=== PATIENT | female | born 1965 | race Caucasian/White ===

== ENCOUNTER 2025-05-16 12:26 | Emergency (ER) | payer OTHER, SELFPAY ==
--- NOTE | ~2025-05-16 | XR_ITS ---
EXAMINATION: XR wrist RT min 3V DATE: 05/16/2025 13:09 INDICATION: Pain for 2 weeks. No injury TECHNIQUE:4 images of the right wrist were obtained. COMPARISON: none FINDINGS: Moderate joint space narrowing in the first carpometacarpal joint and first metacarpophalangeal joint. Soft tissue swelling about the right wrist. Vascular calcifications are noted. Bone mineralization is within normal limits. No fracture. No dislocation. IMPRESSION: 1. No fracture. No dislocation 2. Moderate joint space narrowing in the first carpometacarpal joint and first metacarpophalangeal joint. 3. Soft tissue swelling about the right wrist. If symptoms persist or worsen, consider a short-term follow-up study or additional imaging for further assessment. Reviewed, dictated and finalized at location Q. IMPRESSION: 1. No fracture. No dislocation 2. Moderate joint space narrowing in the first carpometacarpal joint and first metacarpophalangeal joint. 3. Soft tissue swelling about the right wrist. If symptoms persist or worsen, consider a short-term follow-up study or additio nal imaging for further assessment.
[2025-05-16 12:38] VITALS: BP 129/70; PULSE 85; RESP 18; TEMP 36.2; O2SAT 96
--- OUTSIDE RECORDS SUMMARY | 2025-05-16 12:40 | XMS_ITS | Encounter Summary ---
Author Organization [facility] Health Address [address] [place] [address] Care Team Providers Care Cloth Spreader Name Role Phone Nolan Villa MD Primary Care Provider [phone] Cali Garcia MD Unavailable [facility] services Ravinder Alejandro MD Unavailable [phone] Sulaiman Elliott MD Unavailable Gabriel Coffman MD Unavailable [phone] Gill Lopez MD Primary Care Provider [phone] Gill Lopez MD Unavailable [phone] Encounter Details Date Type Department Care Team (Late st Contact Info) Description 12/07/2012 [facility] Outpatient Visit [facility] [address] [place], [place] [id number] Nolan Villa MD [address] [place] [address] Social History Tobacco Use Types Packs/Day Years Used Date Smoking Tobacco: Never Smokeless Tobacco: Never Alcohol Use Standard Drinks/Week Comments No 0 (1 standard drink = 0.6 oz pur e alcohol) Comments No Sex and Gender Information Value Date Recorded Sex Assigned at Not on file Legal Sex 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 Gender Identity Not on file Sexual Orientation Not on file 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 Not on file documented as of this encounter Plan of Treatment Upcoming Encounters Date Type Department Care Team (Late st Contact Info) Description 11/29/2025 8:15 AM CDT Office Visit [facility] - Internal Medicine [address] [facility] [place], [place] [phone] Gill Lopez MD [address] [place] [address] 04/13/2026 8:45 AM CDT Office Visit [facility] [address] [place] [address] [address] [place] [address] Gabriel Coffman MD [address] [place] [address] [address] [place] [address] documented as of this encounter Visit Diagnoses Not on filedocumented in this encounter Care Teams Cloth Spreader Relationship Specialty Start Date End Date Nolan Villa MD PCP - General 10/17/08 11/15/20 Gill Lopez MD [address] [place] [address] PCP - General Family Medicine 11/16/20 Gill Lopez MD [address] [place] [phone] PCP - Attributed-[employer] 11/22/21 Cali Garcia MD 04/04/10 Ravinder Mora MD [facility] [address] [place] [phone] 04/04/10 Sulaiman Elliott MD [facility] [address] [place] [phone] Orthopedic Surgery 06/21/15 Gabriel Coffman MD [facility] [address] [place] [address] Cardiology 08/19/16 documented as of this encounter
--- OUTSIDE RECORDS SUMMARY | 2025-05-16 12:40 | XMS_ITS | Clinical Summary ---
Author Organization [facility] Address [address] [place] [address] Care Team Providers Care Keeper Helper Name Role Phone Cali Garcia MD Unavailable UnavailRavinder Fenton MD Unavailable [phone] Sulaiman Elliott MD Unavailable Gabriel Coffman MD Unavailable [phone] Gill Lopez MD Primary Care Provider Source Comments [facility],non-owned Affiliates and Associated Physician Practices is amultiple site organization consisting of ambulatory clinics and hospital sitesin [place], [place], [place] and [place]. This disclosure is being madepursuant to the Care Everywhere program and may not contain all information available regarding this patient. Last updated 18.[facility] Allergies Active Allergy Reactions Criticality Noted Date Comments Adhesive Sensitivity Other 04/08/2021 Reaction: SKIN IRRITATION, Apixaban Urticaria High 06/04/2021 Azithromycin Diarrhea Low 10/16/2014 Diclofenac Sodium Diarrhea Medium 08/03/2018 Penicillins Rash Medium 10/17/2008 Prochlorperazine Rash Medium 01/07/2021 Silicon Rash,Other Medium 04/08/2021 Che skin Medications * Be aware that medications may not be up to date on this document. Alwaysverify current medications with the patient. fexofenadine (Tanisha) 180 MG tablet Take 1 (one) tablet by mouth once daily Active metoprolol succinate XL 24hr (Toprol XL) 50 MG tablet Take 1 (one) tablet by mouth once daily 90 tablet 4 04/07/2024 Active vitamin D (Cholecaciferol ) 125 MCG (5000 UT) capsule Take 1 (one) capsule by mouth once daily Active rosuvastatin (Crestor) 20 MG tablet Take 1 tablet by mouth once daily 90 tablet 3 02/14/2025 Active sertraline (Zoloft) 100 MG tablet Take 1 tablet by mouth once daily 100 tablet 02/23/2025 Active Active Problems Problem Noted Date Diagnosed Date Hypertensive heart disease with heart failure PSVT (paroxysmal supraventricular tachycardia) 1 Status post total right knee replacement 022 07/22/2023 Status post total replacement of left hip 202007/22/2023 Primary osteoarthritis of left hip 02/18/2021 07/22/2023 Overview (07/22/2023): Added automatically from request for surgery [id number] Knee pain 01/01/2021 07/22/2023 Seborrheic keratosis 04/07/2018 Overview (04/07/2018): Lateral right breast Moderate episode of recurrent major depressive d isorder 12/09/2016 Hematuria 08/01/2016 Overview (08/01/2016): Neg urological workup, October,, Dr. Td Villa Osteoarthritis of both knees 07/25/2016 Pain of both shoulder joints 07/25/2016 Diffuse cystic mastopathy of breast 03/24/2016 Hyperlipidemia 03/21/2016 Right knee DJD 08/02/2013 Family history of breast cancer 07/13/2012 Other specified pruritic conditions 07/02/2009 Obesity 10/17/2008 Depression 10/17/2008 Palpitations 10/17/2008 Overview (10/16/2015): Note that about 16 years ago, had a cardiac cath. Appeared to have some degree of small vessel spasming with her PSVT, relieved for years with long acting nitrates. 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 10/17/2008 09/08/2011 Encounters Date Type Department Care Team Description 04/18/2025 Results Follow-Up [facility] [address] [place] [address] Gill Lopez MD Returned Call 04/13/2025 9:00 AM CDT Office Visit [facility] Heart [facility] Vascular [address] [place] [address] Gabriel Coffman MD PSVT (paroxysmal supraventricular tachycardia) (HCC) (Primary Dx) 04/13/2025 Results Follow-Up [facility] Internal Medicine [address] [place] [address] Gill Lopez MD 04/13/2025 Results Follow-Up [facility] Vascular [address] [place] [address] Gabriel Coffman MD 02/23/2025 Refill [facility] Internal Medicine [address] [place] [address] Gill Lopez MD Refill Request from Last 3 Months Immunizations Immunization Administration Dates Next Due Covid Bluechilli primary monoval ent 12+ yr 0.3mL Purple cap 07/15/2021,09/28/2020,09/07/2020 FLU VACCINE TRI IIV3 SPLIT I M (FLUVIRIN) 06/12/2012 INFLUENZA VACCINE 06/24/2015, 2,04/24/2011,2009,05/21/2009 INFLUENZA VACCINE, CELL CULT URE, QUADR. (FLUCELVAX QUADRIVALENT; 6MO+) (CCIIV4) 06/21/2020 INFLUENZA VACCINE, QUADR. (F LUZONE; FLULAVAL; FLUARIX; AFLURIA QUADRIVALENT; 6MO+), 0.5 ML (IIV4) 07/22/2023,07/15/2021,07/23/2017,2015 INFLUENZA VACCINE, TRIV. (FL UZONE; FLULAVAL; FLUARIX; AFLURIA TRIVALENT; 6MO+), 0.5 ML (IIV3) 06/20/2024,06/20/2015 TD VACCINE 08/24/2004 TDAP (7yrs+) 10/16/2015 Zoster Hzv Vacc Recombinant Inj Im 07/14/2018,,04/08/2018 Family History Medical History Relation Name Comments CVA<55(male) Father Hypertension Father Cancer - Pancreatic Mother Breast Cancer after age 50 or unknown Sister 1 2015 Cancer Sister 3 at age 55 Relation Name Status Comments Brother (Age 18) MVA Father (Age 64) CVA Mother (Age 62) pancreatic cancer Sister 1 breast cancer, with mets Sister 2 Alive Sister 3 Social History Tobacco Use Types Packs/Day Years Used Date Smoking Tobacco: Never Passive Smoke Exposure: Never Smokeless Tobacco: Never Tobacco Cessation:Counseling Given: Not Answered Alcohol Use Standard Drinks/Week Comments Yes 1 (1 standard drink = 0.6 oz pur e alcohol) PHQ-2 Answer Date Recorded Patient Health Questionnaire-2 Score 0 11/25/2024 Comments No Sex and Gender Information Value Date Recorded Sex Assigned at Not on file 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 Gender Identity Not on file Sexual Orientation Not on file 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 Not on file Last Filed Vital Signs Vital Sign Reading Time Taken Comments Blood Pressure 130/98 04/13/2025 8:55 AM CDT Pulse 75 04/13/2025 8:55 AM CDT Temperature 36.4 C (97.6 F) 11/25/2024 1:18 PM CDT Respiratory Rate 18 07/21/2022 9:20 AM VE TEACHER Oxygen Saturation 95% 04/13/2025 8:55 AM CDT Inhaled Oxygen Concentration - - Weight 106.1 kg (233 lb 12.8 oz) 04/13/2025 8:55 AM CDT Height 157.5 cm (5' 2) 11/25/2024 1:18 PM CDT Body Mass Index 42.76 11/25/2024 1:18 PM CDT Plan of Treatment Upcoming Encounters Date Type Department Care Team (Late st Contact Info) Description 11/29/2025 8:15 AM CDT Office Visit [facility] - Internal Medicine [address] [facility] [place] [address] Gill Lopez MD [address] [facility] [place] [address] 04/13/2026 8:45 AM CDT Office Visit [facility] Care [address] [facility] [address] [place] [address] Gabriel Coffman MD [facility]7 [facility] [address] [place] [address] Health Maintenance Due Date Last Done Comments COLOGUARD (AGES 45-75) - COLON CA SCREENING 1965 CT COLONOGRAPHY - COLON CA SCREENING 1965 FIT - COLON CA SCREENING 1965 FLEX SIG - COLON CA SCREENING 1965 HIV SCREENING 1980 HEPATITIS C SCREENING 07/26/1983 HEPATITIS B VACCINE (1 of 3 - 19+ 3-dose series) 1984 PNEUMOCOCCAL VACCINE 50+ (1 of 1 - PCV) 2015 COVID-19 VACCINE (2024- season) 2025 07/15/2021, 09/28/2020, 09/07/2020 INFLUENZA VACCINE (#1) 2025 , 07/22/2023, 07/15/2021, Additional history exists DTAP/TDAP/TD VACCINES (3 - Td or Tdap) 10/16/2025 10/16/2015, 08/24/2004 MAMMOGRAM 04/14/2027 04/14/2025, 04/0 08/2023, 11/23/2023, Additional history exists COLON MONITORING 07/21/2027 07/21/2022, , 07/21/2022, Additional history exists Colorectal Cancer Screening 07/21/2027 SCREENING FOR DIABETES 04/13/2028 , 04/13/2025, 06/22/2024, Additional history exists COLONOSCOPY - COLON CA SCREENING 07/21/2032 07/21/2022, 07/21/2022, 07/21/2022, Additional history exists ZOSTER VACCINE Completed 07/14/2018, 04/24, 04/08/2018 DEPRESSION SCREENING Completed 11/25/2024, 02/02/2024, 07/22/2023, Additional history exists HIB VACCINE Aged Out No longer eligi ble based on patient's age to complete this topic HPV VACCINE Aged Out No longer eligi ble based on patient's age to complete this topic MENINGOCOCCAL (Group B) VACCINE SHARED DECISION-MAKING Aged Out No longer eligible based on patient's age to complete this topic MENINGOCOCCAL GROUPS A/C/Y/W VACCINE Aged Out No longer eligible based on patient's age to complete this topic Procedures Procedure Name Priority Date/Time Associated Diagnosis Comments MAMMOGRAM 04/14/2025 LIPID PROFILE Routine 04/13/2025 10:08 AM CDT PSVT (paroxysmal supraventricular tachycardia) (HCC) LIPOPROTEIN A Routine 04/13/2025 10:07 AM CDT PSVT (paroxysmal supraventricular tachycardia) (HCC) BASIC METABOLIC PANEL (CALCIUM TOTAL) Routine 04/13/2025 10:07 AM CDT IGT (impaired glucose tolerance) HEMOGLOBIN A1C Routine 04/13/2025 10:07 AM CDT IGT (impaired glucose tolerance) EKG 12-LEAD Routine 04/13/2025 9:11 AM CDT PSVT (paroxysmal supraventricular tachycardia) (HCC) ENDOSCOPY, COLON, SCREENING Routine 07/21/2022 9:26 AM VE TEACHER Hx of colonic polyps from Last 3 Months or Most Recently Relevant to Health Maintenance Results * MAMMOGRAM (04/14/2025) Anatomical Region Laterality Modality Other 04/14/2025 Narrative 04/14/2025 Ordered by an unspecified provider. us Scanned Document SCANNING ONLY Final Result * (ABNORMAL) LIPID PROFILE (04/13/2025 10:08 AM CDT) Cholesterol 162 <200 mg/dL [facility] INSURANCE BILL Triglycerides 158(H) <150 mg/dL [facility] INSURANCE BILL HDL Cholesterol 54 >40 mg/dL [facility] INSURANCE B[facility] VLDL Calculated 32(H) <=30 mg/dL [facility] INSURANCE BILL LDL Calculated 76 <130 mg/dL [facility]URANCE BILL Comment:LDL is calculated us ing the Friedewald equation. Blood BLOOD SPECIMEN / Unknown 04/13/2025 10:08 AM CDT 04/13/2025 Narrative [facility] INSURANCE BILL - 04/13/2025 5:10 PM CDT Performed at: [address] [place] [address] [place] [id number] Split And Drum Room Supervisor: Connor Romero Dr, Phone: [phone] Gabriel Coffman MD LAB - CHEMISTRY ORDERABLES Fi nal Result [facility] INSURANCE BILL [address] [place] [address] * LIPOPROTEIN A (04/13/2025 10:07 AM CDT) Lipoprotein (a) 73.9 <75.0 nmol/L [facility] INSURANCE BILL Comment: Note: Values greater than or equal to 75.0 nmol/L may indicate an independent risk factor for CHD, but must be evaluated with caution when applied to non- populations due to the influence of genetic factors on Lp(a) across ethnicities. Blood BLOOD SPECIMEN / Unknown 04/13/2025 10:07 AM CDT 04/13/2025 Narrative [facility] INSURANCE BILL - 04/14/2025 10:10 AM CDT Test(s) 263754-Uytvqfqkvza (a) was developed and its performance characteristics determined by [employer]. It has not been cleared or approved by the Food and Drug Administration. Performed at: [address] [place] [address] [address] [place], [place] [id number] Split And Drum Room Supervisor: Celestine Ponce PhD, Phone: [phone] us Gabriel Coffman MD LAB - CHEMISTRY ORDERABLES Fi nal Result [facility] INSURANCE BILL [address] [place] [address] * (ABNORMAL) HEMOGLOBIN A1C (04/13/2025 10:07 AM CDT) Hemoglobin A1c 6.1(H) <5.7 % [facility] INSURANCE BILL Comment: AVERAGE GLUCOSE MG/DL BLOOD 128 mg/dL HbA1c Interpretation: Normal: < 5.7% Pre-diabetes: 5.7-6.4% Diabetes: Equal to or greater than 6.5% Test results diagnostic of diabetes should be repeated for c onfirmation. Treatment target values recommended by ADA and other clinica l organizations should be used to evaluate metabolic control in patients. This test should not replace glucose testing for patients wi th Type 1 diabetes, pediatric patients, or women. Falsely low HbA1c results may be observed in patients with c linical conditions that shorten erythrocyte life span or dec rease mean erythrocyte age such as the presence of unstable hemoglobin variants, elevated hemoglobin F level or other ca uses of hemolytic anemia. HbA1c may not accurately reflect glycemic control when clinical conditions that affect erythr ocyte survival are present. Severe Iron deficiency anemia m ay yield falsely high results. Hemoglobin A1c assay should not be used to diagnose or monitor diabetes in patients with malignancy, recent blood transfusion, chronic kidney or stephane er disease. This method may yield falsely low results when hemoglobin (HbF) exceeds 5% in the specimen. The Ty Alinity assay for the measurement of HbA1c is a [facility] Glycohemoglobin Standardization Program (NGSP) certi fied method. Blood BLOOD SPECIMEN / Unknown 04/13/2025 10:07 AM CDT 04/13/2025 Narrative [facility] INSURANCE BILL - 04/13/2025 4:07 PM CDT Performed at: [address] [place] [id number] Split And Drum Room Supervisor: Connor Romero Dr, Phone: [phone] us Gill Lopez MD LAB - CHEMISTRY ORDERABLES Fin al Result [facility] INSURANCE BILL [address] [place] [address] * (ABNORMAL) BASIC METABOLIC PANEL (CALCIUM TOTAL) (04/13/2025 10:07 AM CDT) Glucose 96 70 - 99 mg/dL [facility] INSURANCE BILL BUN 9 7 - 26 mg/dL [facility] INSURANCE BILL Creatinine 0.67 0.57 - 1.11 mg/dL [facility] INSURANCE BILL eGFR by CKD-EPI >90 >=90 mL/min/1.7 3 m2 [facility] INSURANCE BILL Comment: Estimated Glomerular Filtration Rate (eGFR) calculated using the CKD-EPI Creatinine Equation (2020), per the National [place] [employer] Foundation and [place]ph[employer] recommend ations. Sodium 142 136 - 145 mmol/L [facility] INSURANCE BILL Potassium 5.0 3.5 - 5.1 mmol/L [facility] INSURANCE BILL Chloride 105 98 - 107 mmol/L [facility] INSURANCE BILL CO2 30(H) 22 - 29 mmol/L [facility] INSURANCE BILL Calcium 9.2 8.4 - 10.4 mg/dL [facility] INSURANCE BILL Blood BLOOD SPECIMEN / Unknown 04/13/2025 10:07 AM CDT 04/13/2025 Narrative [facility] INSURANCE BILL - 04/13/2025 8:07 PM CDT Performed at: [address] [place] [id number] Split And Drum Room Supervisor: Connor Romero Dr, Phone: [phone] Gill Lopez MD LAB - CHEMISTRY ORDERABLES Fin al Result [facility] INSURANCE BILL [address] [place] [address] * EKG 12-LEAD (04/13/2025 9:11 AM CDT) Ventricular Rate 68 BPM [facility] Atrial Rate 68 BPM [facility] P-R Interval 132 ms [facility] QRS Duration ms 86 ms [facility] Q-T Interval ms 394 ms [facility] QTC Calculation (Bezet) 418 ms [facility] Calculated P [place] 55 degrees [facility] Calculated R [place] 67 degrees [facility] Calculated T [place] 64 degrees [facility] MUSE Interpretation EKG NORMAL SINUS RHYTHM LEFT ATRIAL ENLARGEMENT BORDERLINE ECG Confirmed by MD Meghna, Gabriel ([id number]) on 04/14/2025 7:27:11 AM [facility] MUSE 04/13/2025 9:11 AM CDT 04/14/2025 7:27 AM CDT us Gabriel Coffman MD ECG ORDERABLES Edited Result - Final [facility] MUSE * ENDOSCOPY, COLON, SCREENING (07/21/2022 9:26 AM VE TEACHER) Report Endoscopy POC _ Patient Name: Karie Graves Procedure Date: 07/21/2022 9:26 AM Date of : 1965 Admit Type: Outpatient Age: 56 Gender: Female Ethnicity: Not or Race: White Attending MD: Katiana Miller MD _ Procedure: Colonoscopy Indications: Surveillance: Personal history of adenomatous polyps on last colonoscopy 5 years ago Providers: Katiana Miller MD (Doctor), Ag Rojas, VIRGINIE, Catarina Goodson RN Patient Profile: 56F presents for surveillance colonoscopy Referring MD: Gill Lopez MD (Referring MD) Medicines: Monitored Anesthesia Care Complications: No immediate complications. _ Estimated Blood Loss: Estimated blood loss was minimal. Procedure: Pre-Anesthesia Assessment: - Prior to the procedure, a History and Physical was performed, and patient medications and allergies were reviewed. The patient's tolerance of previous anesthesia was also reviewed. The risks and benefits of the procedure and the sedation options and risks were discussed with the patient. All questions were answered, and informed consent was obtained. Prior Anticoagulants: The patient has taken no previous anticoagulant or antiplatelet agents. ASA Grade Assessment: II - A patient with mild systemic disease. After reviewing the risks and benefits, the patient was deemed in satisfactory condition to undergo the procedure. After I obtained informed consent, the scope was passed under direct vision. Throughout the procedure, the patient's blood pressure, pulse, and oxygen saturations were monitored continuously. The Colonoscope was introduced through the anus and advanced to the cecum, identified by appendiceal orifice and ileocecal valve. The colonoscopy was performed without difficulty. The patient tolerated the procedure well. The quality of the bowel preparation was fair. The ileocecal valve, appendiceal orifice, and rectum were photographed. Impression: - One 4 mm polyp in the sigmoid colon, removed with a cold biopsy forceps. Resected and retrieved. - Two 11 to 14 mm polyps at the recto-sigmoid colon, removed with a hot snare. Resected and retrieved. Findings: The perianal and digital rectal examinations were normal. A 4 mm polyp was found in the sigmoid colon. The polyp was sessile. The polyp was removed with a cold biopsy forceps. Resection and retrieval were complete. Two semi-sessile polyps were found in the recto-sigmoid colon. The polyps were 11 to 14 mm in size. These polyps were removed with a hot snare. Resection and retrieval were complete. No additional abnormalities were found on retroflexion. _ Recommendation: - Patient has a contact number available for emergencies. The signs and symptoms of potential delayed complications were discussed with the patient. Return to normal activities tomorrow. Written discharge instructions were provided to the patient. - High fiber diet. - avoid asa/NSAIDs x 2 wks - Repeat colonoscopy in 3 years for surveillance based on pathology results. Procedure Code(s): --- Professional --- 50115, Colonoscopy, flexible; with removal of tumor(s), polyp(s), or other lesion(s) by snare technique 89744, 59, Colonoscopy, flexible; with biopsy, single or multiple --- Technical --- 95747, Colonoscopy, flexible; with removal of tumor(s), polyp(s), or other lesion(s) by snare technique 63437, 59, Colonoscopy, flexible; with biopsy, single or multiple Diagnosis Code(s): --- Professional --- K63.5, Polyp of colon Z86.010, Personal history of colonic polyps --- Technical --- K63.5, Polyp of colon Z86.010, Personal history of colonic polyps CPT copyright 2019 [employer]. All rights reserved. The codes documented in this report are preliminary and upon social work nurse review may be revised to meet current compliance requirements. Katiana Miller MD 07/21/2022 9:59:33 AM This report has been signed electronically. Number of Addenda: 0 Note Initiated On: 07/21/2022 9:26 AM [facility] ENDOSCOPY 07/21/2022 9:26 AM VE TEACHER Narrative Procedure Note Katiana Miller MD - 07/21/2022 10:00 AM CST Colonoscopy 3 polyps resected including 2 large polyps/adenomas Fair prep, R side worse Surveillance 3 yrs pending path Brief nsaid avoidance D/w Karie us Katiana Miller MD GI PROCEDURE ORDERABLES Edited R esult - Final [facility] ENDOSCOPY from Last 3 Months or Most Recently Relevant to Health Maintenance Insurance [facility] RE[facility]AC[facility] BY [facility] [employer] Advance Directives Documents on File Type Date Recorded Patient Social Services Designee Expl anation Adv Directive/Living Will/POA 11/16/2020 8:39 AM verbal Care Teams Keeper Helper Relationship Specialty Start Date End Date Gill Lopez MD [address] [facility] [address] PCP - General Family Medicine 11/16/20 Cali Garcia MD 04/04/10 Ravinder Mora MD [address] [place] [phone] 04/04/10 Sulaiman Elliott MD [address] [place] [address] Orthopedic Surgery 06/21/15 Gabriel Coffman MD [address] [facility] [address] [place] [address] Cardiology 08/19/16
--- OUTSIDE RECORDS SUMMARY | 2025-05-16 12:40 | XMS_ITS | Encounter Summary ---
Author Organization [facility] Address [address] [place] [address] Care Team Providers Care Car Pusher Name Role Phone Nolan Villa MD Primary Care Provider [phone] Cali Garcia MD Unavailable Unavaillegacy [facility] Ravinder Alejandro MD Unavailable [phone] Sulaiman Elliott MD Unavailable Gabriel Coffman MD Unavailable [phone] Gill Lopez MD Primary Care Provider [phone] Gill Lopez MD Unavailable [phone] Encounter Details Date Type Department Care Team (Late Contact Info) Description 12/13/2012 [facility] Outpatient Visit [facility] [address] [place] [address] Unknown, Provider Social History Tobacco Use Types Packs/Day Years Used Date Smoking Tobacco: Never Smokeless Tobacco: Never Alcohol Use Standard Drinks/Week Comments No 0 (1 standard drink = 0.6 oz pur e alcohol) Comments No Sex and Gender Information Value Date Recorded Sex Assigned at Not on file Legal Sex Female 6: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 Gender Identity Not on file Sexual Orientation Not on file 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 Not on file documented as of this encounter Plan of Treatment Upcoming Encounters Date Type Department Care Team (Late Contact Info) Description 11/29/2025 8:15 AM CDT Office Visit [facility] - Internal Medicine [address] [facility] [place] [address] Gill Lopez MD [address] [place] [address] 04/13/2026 8:45 AM CDT Office Visit [facility] [address] [place] [address] [address] [place] [address] Gabriel Coffman MD [address] [place] [address] documented as of this encounter Visit Diagnoses Not on filedocumented in this encounter Care Teams Car Pusher Relationship Specialty Start Date End Date Nolan Villa MD PCP - General 10/17/08 11/15/20 Gill Lopez MD [address] [place] [address] PCP - General Family Medicine 11/16/20 Gill Lopez MD [address] [place] [address] PCP - Attributed-[facility] 11/22/21 Cali Garcia MD 04/04/10 Ravinder Mora MD [address] [place] [phone] 04/04/10 Sulaiman Elliott MD [address] [place] [phone] Orthopedic Surgery 06/21/15 Gabriel Coffman MD [address] [facility] [address] [place] [address] Cardiology 08/19/16 documented as of this encounter
--- OUTSIDE RECORDS SUMMARY | 2025-05-16 12:40 | XMS_ITS | Clinical Summary ---
Author Organization [facility] Address [address] [place] [address] Care Team Providers Care Director Of Field Service Name Role Phone Gill Lopez MD Primary Care Provider Gabriel Coffman MD Unavailable [phone] Td Lemons MD Unavailable [phone] Allergies Active Allergy Reactions Criticality Noted Date Comments Adhesive Tape-Silicones Other (See comments) Low Skin irritation Azithromycin Diarrhea Low 10/16/2014 Diclofenac Sodium Diarrhea Low 08/03/2018 Apixaban Blisters High 06/04/2021 On back following joint replacement surgery Meloxicam Diarrhea Low 05/02/2021 Penicillins Rash Medium Prochlorperazine Rash Medium 01/07/2021 Silicon Rash Medium 04/08/2021 Itching burning skin feels like sunburn Medications rosuvastatin (CRESTOR) 20 mg tablet Take 1 tablet (20 mg total) by mouth daily 12/16/2020 Active sertraline (ZOLOFT) 100 mg tablet Take 1 tablet (100 mg total) by mouth daily 10/11/2020 Active loratadine (CLARITIN) 10 mg tablet Take 1 tablet (10 mg total) by mouth daily Active metoprolol XL (TOPROL-XL) 50 mg extended release tablet Take 1 tablet (50 mg total) by mouth daily 08/13/2024 Active Active Problems Problem Noted Date Diagnosed Date Status post total left knee replacement 07/20/20 24 Arthritis of left knee 07/07/2024 Primary osteoarthritis of left knee 04/28/2024 Status post total right knee replacement 022 Status post total replacement of left hip 2020 Primary osteoarthritis of left hip 02/18/2021 Overview (02/18/2021): Added automatically from request for surgery [id number] Chronic pain of right knee 01/01/2021 Chronic pain of left knee 01/01/2021 Seborrheic keratosis 04/07/2018 Overview (01/07/2021): Lateral right breast Moderate episode of recurrent major depressive d isorder 12/09/2016 Hematuria 08/01/2016 Overview (01/07/2021): Neg urological workup, October,, Dr. Td Villa Osteoarthritis of both knees 07/25/2016 Pain of both shoulder joints 07/25/2016 Fibrocystic breast changes 03/24/2016 Hyperlipidemia 03/21/2016 Right knee DJD 08/02/2013 Family history of breast cancer 07/13/2012 Other specified pruritic conditions 07/02/2009 Depression 10/17/2008 Obesity 10/17/2008 PSVT (paroxysmal supraventricular tachycardia) 0 10/17/2008 Overview (01/07/2021): Note that about 16 years ago, had a cardiac cath. Appeared to have some degree of small vessel spasming with her PSVT, relieved for years with long acting nitrates. Vitamin D deficiency 10/17/2008 Overview (01/07/2021): Encounters Date Type Department Care Team Description 03/21/2025 8:45 AM CDT Office Visit [facility] Orthopedics and Sports Medicine [address] [place] [phone] Td Lemons MD Status post total knee replacement, left (Primary Dx) 03/21/2025 8:26 AM CDT - 03/21/2025 11:59 PM CDT Hospital Encounter [facility] [address] [place] [address] Status post total knee replacement, left Discharge Disposition: Discharge to home or self care from Last 3 Months Immunizations Immunization Administration Dates Next Due Pfizer SARS-CoV-2 Monovalent Vaccination (12+ Yrs) PURPLE 09/28/2020,09/07/2020 Surgical History Surgery Date Site/Laterality Comments APPENDECTOMY FL FLUORO GUIDED INJECTION HIP LEFT 01/09/2021 Left SECTION x1 COLONOSCOPY 12/22/2016 - 01/21/2017 polyp removal CARDIAC CATHETERIZATION 08/24/1999 - 08/23/2000 no intervention REDUCTION MAMMAPLASTY 08/24/1996 - 08/23/1997 HERNIA REPAIR right inguinal 03/2011. left inguinal 2011 wt mesh HYSTERECTOMY 10/22/2010 - 11/21/2010 total JOINT REPLACEMENT 05/02/2021 Left total hip WISDOM TOOTH EXTRACTION 08/24/2019 - 08/23/2020 JOINT REPLACEMENT 05/05/2022 Right total knee JOINT REPLACEMENT 07/07/2024 Left total knee Medical History Medical History Date Comments Hypercholesteremia Osteoarthritis Depression Motion sickness boat/car SVT (supraventricular tachycardia) microcoronary heart disease Allergic rhinitis Wears glasses Dental crown present SVT (supraventricular tachycardia) h/o well managed on beta annelise Fibrocystic breast Obesity Family History Medical History Relation Name Comments Cancer Other Relation Name Status Comments Other Social History Tobacco Use Types Packs/Day Years Used Date Smoking Tobacco: Never Smokeless Tobacco: Never [facility] Utilities Answer Date Recorded In the past 12 months has [employer], gas, oil, or water [employer] threatened to shut off services in your home? No 07/07/2024 Social Connection and Isolation Panel Answer Date Recorded In a typical week, how many times do you talk on the phone with family, friends, or neighbors? Twice a week 07/07/2024 How often do you get together with friends or re latives? Twice a week 07/07/2024 How often do you attend islam or congregation serv ices? Never 07/07/2024 Do you belong to any clubs o r organizations such as islam groups, unions, fraternal or athletic groups, or school groups? No 07/07/2024 How often do you attend meet ings of the clubs or organizations you belong to? Never 07/07/2024 Are you , , di vorced, , never , or living with a partner? 07/07/2024 AUDIT-C Answer Date Recorded Q1: How often do you have a drink containing alc ohol? Monthly or less 06/22/2024 Q2: How many drinks containi ng alcohol do you have on a typical day when you are drinking? 1 or 2 06/22/2024 Q3: How often do you have si x or more drinks on one occasion? Never 06/22/2024 Overall Financial Resource Strain (CARDIA) Answe r Date Recorded How hard is it for you to pa y for the very basics like food, housing, medical care, and heating? Not hard at all 07/07/2024 Hunger Vital Sign Answer Date Recorded Within the past 12 months, y ou worried that your food would run out before you got the money to buy more. Never true 07/07/20 24 Within the past 12 months, t he food you bought just didn't last and you didn't have money to get more. Never true 07/07/2024 PRAPARE - Transportation Answer Date Re corded In the past 12 months, has l ack of transportation kept you from medical appointments or from getting medications? No 06/24 In the past 12 months, has l ack of transportation kept you from meetings, work, or from getting things needed for daily living? No 07/07/2024 Housing Stability Vital Sign Answer Blanco e Recorded In the last 12 months, was t here a time when you were not able to pay the mortgage or rent on time? No 07/07/2024 In the past 12 months, how m any times have you moved where you were living? 0 07/07/2024 At any time in the past 12 m [facility], were you homeless or living in a skilled nursing (including now)? No 07/07/2024 Personal Safety Answer Date Recorded Have you ever been in or are you currently in a harmful physical or emotional relationship or is someone making you feel afraid or unsafe? 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[employer] Not on file Not on file Not on file Obstetrics History Last Filed Vital Signs Vital Sign Reading Time Taken Comments Blood Pressure 116/80 07/08/2024 7:05 AM POLITICAL GEOGRAPHER Pulse 91 07/08/2024 7:05 AM POLITICAL GEOGRAPHER Temperature 37.2 C (99 F) 07/08/2024 7:05 AM POLITICAL GEOGRAPHER Respiratory Rate 16 07/08/2024 7:05 AM POLITICAL GEOGRAPHER Oxygen Saturation 94% 07/08/2024 7:05 AM POLITICAL GEOGRAPHER Inhaled Oxygen Concentration - - Weight 99.8 kg (220 lb) 03/21/2025 8:33 AM CDT Height 157.5 cm (5' 2) 03/21/2025 8:33 AM CDT Body Mass Index 40.24 03/21/2025 8:33 AM CDT Plan of Treatment Health Maintenance Due Date Last Done Comments Colon Cancer Screening-Colonoscopy 1965 Depression Screening 1965 Hepatitis C Screening 1965 Hepatitis B Screening 1983 Regular Well Visit/Exam 18-64 1983 Breast Cancer Screening-Mammogram 11/22/2024 11/23/2023, 11/23/2023, 11/06/2022, Additional history exists Covid-19 Vaccine ( season) 2025 07/15/2021, 09/28/2020, 09/07/2020 Influenza Vaccine (#1) 2025 , 07/22/2023, 07/15/2021, Additional history exists DTaP/Tdap/Td Vaccine (2 - Td or Tdap) 10/16/2025 10/16/2015, 08/24/2004 Zoster Vaccine Completed 07/14/2018, 04/24, 04/08/2018 Pneumococcal vaccine <65 Aged Out No longer eligible based on patient's age to complete this topic Medical Devices Implanted Type Area Health Services Coordinator Device Identifier Shelf Expiration Date Model / Serial / Lot Mesh Mesh Bilatera l: Groin [employer] [id number] 52mm 36mm Hip 20d Liner Acetabular Xlpe Poly Sterile - [id number] Implanted:Qty: 1 on 05/02/2021 by Td Lemons MD at [facility] Left: Hip [employer] [id number] 02/25/2027 [id number] / / [id number] [employer] [id number] R3 52mm 3 Hole Hip Standard Shell Acetabular Poly - [id number] Implanted:Qty: 1 on 05/02/2021 by Td Lemons MD at [facility] Left: Hip [employer] [id number] 03/05/2031 [id number] / / [id number] [employer] [id number] Reflection R3 Thread Acetabulum Cover Hole - [id number] Implanted:Qty: 1 on 05/02/2021 by Td Lemons MD at [facility] Left: Hip [employer] [id number] 11/27/2030 [id number] / / [id number] [employer] [id number] Reflection R3 Contour 6.5mm 20mm Spherical Head Hip Acetabular - [id number] Implanted:Qty: 1 on 05/02/2021 by Td Lemons MD at [facility] Left: Hip [employer] 11/06/2028 [id number] / / [id number] [employer] [id number] 36mm Hip +4mm 12/14 Taper Head Femoral Oxinium - [id number] Implanted:Qty: 1 on 05/02/2021 by Td Lemons MD at [facility] Left: Hip [employer] [id number] 12/01/2030 [id number] / / [id number] [employer] [id number] Synergy 12mm 150mm Standard Offset Hip Stem Femoral Titanium - [id number] Implanted:Qty: 1 on 05/02/2021 by Td Lemons MD at [facility] Left: Hip [employer] [id number] 02/11/2031 [id number] / / [id number] [employer] Legion Cemented Male Taper Knee Right 4 Baseplate Tibial Titanium [id number] - [id number] Implanted:Qty: 1 on 05/05/2022 by Td Lemons MD at [facility] [employer] [id number] 03/01/2032 [id number] / / [id number] [employer] Legion Posterior Stabilize Knee Right 6n Narrow Component Femoral [id number] - [id number] Implanted:Qty: 1 on 05/05/2022 by Td Lemons MD at [facility] [employer] [id number] 02/19/2032 [id number] / / [id number] [employer] Simplex P Radiopaque Full Dose Cement Bone Sterile 6191-1-010 - [id number] Implanted:Qty: 1 on 05/05/2022 by Td Lemons MD at [facility] [employer] 08/23/2024 6191-1-010 / / [id number] [employer] Anitra Ii 13mm 29mm Biconvex Knee Component Patellar Uhmwpe [id number] - [id number] Implanted:Qty: 1 on 05/05/2022 by Td Lemons MD at [facility] [employer] [id number] 01/01/2032 [id number] / / [id number] [employer] Legion 11mm Posterior Stabilize High Flexion Knee 3-4 Insert [id number] - [id number] Implanted:Qty: 1 on 05/05/2022 by Td Lemons MD at [facility] [employer] [id number] 01/19/2032 [id number] / / [id number] [employer] Simplex P Radiopaque Full Dose Cement Bone Sterile 6191-1-010 - [id number] Implanted:Qty: 1 on 07/07/2024 by Td Lemons MD at [facility] Left: Knee [employer] 06/23/2026 6191-1-010 / / [id number] [employer] Anitra Ii 13mm 29mm Biconvex Knee Component Patellar Uhmwpe [id number] - [id number] Implanted:Qty: 1 on 07/07/2024 by Td Lemons MD at [facility] Left: Knee [employer] [id number] 03/01/2034 [id number] / / [id number] [employer] Legion 11mm Cruciate Retaining High Flexion Knee 3-4 Insert [id number] - [id number] Implanted:Qty: 1 on 07/07/2024 by Td Lemons MD at [facility] Left: Knee [employer] [id number] 02/17/2032 [id number] / / [id number] [employer] Anitra Ii Left Knee 3 Baseplate Tibial Titanium Nonporous [id number] - [id number] Implanted:Qty: 1 on 07/07/2024 by Td Lemons MD at [facility] Left: Knee [employer] [id number] 12/16/2033 [id number] / / [id number] [employer] Legion Cruciate Retain Knee Left 6n Narrow Component Femoral [id number] - [id number] Implanted:Qty: 1 on 07/07/2024 by Td Lemons MD at [facility] Left: Knee [employer] [id number] 12/14/2033 [id number] / / [id number] Procedures Procedure Name Priority Date/Time Associated Diagnosis Comments XR KNEE LEFT 3 VIEWS Schedule Routine, Read Routine (OP Routine) 03/21/2025 8:30 AM CDT Status post total knee replacement, left from Last 3 Months Results * XR Knee Left 3 Views (03/21/2025 8:30 AM CDT) Anatomical Region Laterality Modality Lower Extremities, Knee Left Computed Radiography Impressions 03/21/2025 8:35 AM CDT Stable and totally expected appearance of left total knee arthroplasty. Narrative 03/21/2025 8:35 AM CDT EXAM DESCRIPTION: XR Knee Left 3 Views REASON FOR STUDY: Status post total knee replacement, left COMPARISON: Left knee x-ray from 08/05/2024 FINDINGS: Three views of the left knee are reviewed. These images reveal a cemented, 3 compartment total knee arthroplasty. The implant components appear well aligned and remain well fixed with no evidence of mechanical loosening or wear. There is no abnormal bone destruction noted. The patella is properly positioned. Compared to previous x-rays there is no change. us Td Lemons MD IMG XR PROCEDURES Final Resu lt from Last [address] [facility] [employer] OPEN ACCESS Advance Directives For more information, please contact: [phone] * Full Code (Latest Code Status on File) Date Activated Date Inactivated Comments 07/07/2024 9:57 AM 07/08/2024 3:12 PM * Full Code Date Activated Date Inactivated Comments 05/05/2022 10:45 AM 05/06/2022 8:20 PM * Full Code Date Activated Date Inactivated Comments 05/02/2021 11:12 AM 05/03/2021 6:14 PM Care Teams Director Of Field Service Relationship Specialty Start Date End Date Gill Lopez MD [address] [facility] [place] [address] PCP - General Family Medicine 12/24/20 Gabriel Coffman MD [address] [facility] [address] [place] [address] Referring Physician Cardiovascular Disease 04/24/21 Td Lemons MD [address] [facility] [place] [address] Consulting Physician Orthopedic Surgery 05/03/21
--- OUTSIDE RECORDS SUMMARY | 2025-05-16 12:40 | XMS_ITS | Encounter Summary ---
Author Organization [facility] Address [address] [place] [address] Care Team Providers Care Occupational Therapy Supervisor Name Role Phone Cali Garcia MD Unavailable Unavailabl Ravinder Alejandro MD Unavailable Sulaiman Elliott MD Unavailable Gabriel Coffman MD Unavailable Gill Lopez MD Primary Care Provider [phone] Encounter Details Date Type Department Care Team (Late st Contact Info) Description 04/13/2025 Results Follow-Up [facility] Heart & Vascular Care [address] [place] [address] [address] [place] [address] Gabriel Coffman MD [address] [place] [address] [address] [place] [address] Social History Tobacco Use Types Packs/Day Years Used Date Smoking Tobacco: Never Passive Smoke Exposure: Never Smokeless Tobacco: Never Alcohol Use Standard Drinks/Week Comments Yes 1 (1 standard drink = 0.6 oz pur e alcohol) PHQ-2 Answer Date Recorded Patient Health Questionnaire-2 Score 0 11/25/2024 Comments No Sex and Gender Information Value Date Recorded Sex Assigned at Not on file Legal Sex Female 6:23 AM IT 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 Answer Date of Assessment Author No 01/07/2017 12:55 PM CDT Renu Galloway RN * Is person blind or have serious difficulty seeing? Answer Date of Assessment Author No 01/07/2017 12:55 PM CDT Renu Galloway RN * Does person have serious difficulty walking/climbing stairs? Answer Date of Assessment Author No 01/07/2017 12:55 PM CDT Renu Galloway RN * Does person have difficulty dressing/bathing? Answer Date of Assessment Author No 01/07/2017 12:55 PM CDT Renu Galloway RN * Does person have difficulty doing errands alone? Answer Date of Assessment Author No 01/07/2017 12:55 PM CDT Renu Galloway RN documented as of this encounter Mental Status * Does person have difficulty concentrating/remembering/making decisions? Answer Entry Date Author No 01/07/2017 12:55 PM MAYELAT Renu Galloway RN documented in this encounter Progress Notes * Balaji Sanford MA - 04/19/2025 10:22 AM CDT Spoke with pt and she voiced understanding. * Balaji Sanford MA - 04/14/2025 9:20 AM CDT LVM for patient to call back for results. * Gabriel Coffman MD - 04/13/2025 4:46 PM CDT Lipids look great, LDL down almost 50% documented in this encounter Plan of Treatment Upcoming Encounters Date Type Department Care Team (Late st Contact Info) Description 11/29/2025 8:15 AM CDT Office Visit [facility] - Internal Medicine [address] [facility] [place] [address] Gill Lopez MD [address] [facility] [place] [address] 04/13/2026 8:45 AM CDT Office Visit [facility] [address] [place] [address] [address] [place] [address] Gabriel Coffman MD [address] [place] [address] documented as of this encounter Visit Diagnoses Not on filedocumented in this encounter Care Teams Occupational Therapy Supervisor Relationship Specialty Start Date End Date Gill Lopez MD [address] [place] [address] PCP - General Family Medicine 11/16/20 Cali Garcia MD 04/04/10 Ravinder Mora MD [facility] [address] [place] [phone] 04/04/10 Sulaiman Elliott MD [facility] [address] [place] [phone] Orthopedic Surgery 06/21/15 Gabriel Coffman MD [address] [place] [address] [address] [place] [address] Cardiology 08/19/16 documented as of this encounter
--- OUTSIDE RECORDS SUMMARY | 2025-05-16 12:40 | XMS_ITS | Clinical Summary ---
Author Organization [facility] Address [address] [address] [facility] [address] Phone Care Team Providers Care Head Field Hockey Coach Name Role Phone Gill Lopez MD Primary Care Provider [phone] Allergies Active Allergy Reactions Criticality Noted Date Comments Apixaban Other (See Comments),Hives High Diclofenac Sodium Diarrhea Low 08/03/2018 Penicillins Rash Low 08/08/2014 Medications sertraline (ZOLOFT) 100 mg tablet Take 100 mg by mouth daily. Active ERGOCALCIFEROL, VITAMIN D2, (VITAMIN D ORAL) Take by mouth. Active rosuvastatin (CRESTOR) 20 mg tabletIndications :Fibrocystic breast changes, unspecified laterality 1 09/10/2016 Active metoprolol tartrate (LOPRESSOR) 25 mg tablet TK 1 T PO BID 3 08/02/2018 Active Active Problems Patient Care Coordination No te Formatting of this note migh t be different from the original. Primary Care: Nolan Villa MD Referring Provider: Nolan Villa MD [address] [place] [address] Other: Problem Noted Date Diagnosed Date Family history of breast cancer 09/28/2017 Fibrocystic breast changes 03/24/2016 Resolved Problems Problem Noted Date Diagnosed Date Resolved Date Mass of breast, right 08/04/20142017 Encounters Date Type Department Care Team Description 04/25/2025 External Device Data [facility] ABSTRACTION Provider, Abstract 04/18/2025 External Device Data [facility] ABSTRACTION Provider, Abstract 04/14/2025 6:55 AM CDT - 04/14/2025 11:59 PM CDT Hospital Encounter [facility] [place] [address] [place] [address] Gill Lopez MD Discharge Disposition: Home or Self Care from Last 3 Months Family History Medical History Relation Name Comments Breast Cancer Maternal Grandmother 60's Pancreatic Cancer Mother Breast Cancer Sister Ovarian Cancer Neg Hx Relation Name Status Comments Father 59 Maternal Grandmother Mother Sister Social History Tobacco Use Types Packs/Day Years Used Date Smoking Tobacco: Never Smokeless Tobacco: Never Tobacco Cessation:Counseling Given: Not Answered Alcohol Use Standard Drinks/Week Comments No 0 (1 standard drink = 0.6 oz pur e alcohol) Comments No Sex and Gender Information Value Date Recorded Sex Assigned at Not on file Legal Sex Female 11:23 AM 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 Gender Identity Not on file Sexual Orientation Not on file Occupation Industry Job Start Date Job End Date Not on file Not on file Not on file Not on file Last Filed Vital Signs Vital Sign Reading Time Taken Comments Blood Pressure 106/71 11/06/2022 8:36 AM CDT Pulse 76 11/06/2022 8:36 AM CDT Temperature 36.9 C (98.4 F) 11/06/2022 8:36 AM CDT Respiratory Rate - - Oxygen Saturation 95% 11/06/2022 8:36 AM CDT Inhaled Oxygen Concentration - - Weight 97.5 kg (215 lb) 11/06/2022 8:36 AM CDT Height 158.8 cm (5' 2.5) 11/06/2022 8:36 AM CDT Body Mass Index 38.7 11/06/2022 8:36 AM CDT Plan of Treatment Health Maintenance Due Date Last Done Comments Pre-Diabetes and Diabetes Screening 1965 HEPATITIS B VACCINES (1 of 3 - 19+ 3-dose series) 1984 FIT-DNA Q 3 years 2010 FIT/FOBT Q 1 year 2010 Flex Sig/CT Colonography Q 5 years 2010 INFLUENZA VACCINE (#1) 2025 , 07/22/2023, 07/15/2021, Additional history exists COVID-19 Vaccine (2024-2 6 season) 2025 07/15/2021, 09/28/2020, 09/07/2020 DTAP/TDAP/TD VACCINES (2 - T d or Tdap) 10/16/2025 10/16/2015, 08/24/2004 BREAST CANCER SCREENING 04/14/2026 04/14/20 25, 11/23/2023, 11/06/2022, Additional history exists COLORECTAL SCREENING 07/21/2032 07/21/2022 Colorectal Cancer Screening 07/21/2032 ZOSTER VACCINE Completed 07/14/2018, 04/24, 04/08/2018 Procedures Procedure Name Priority Date/Time Associated Diagnosis Comments MAMMO 3D RADHA SCREEN BILAT W OR WO CAD Routine 04/14/2025 7:11 AM CDT Visit for screening mammogram from Last 3 Months Results * MAMMO 3D RADHA SCREEN BILAT W OR WO CAD (04/14/2025 7:11 AM CDT) Anatomical Region Laterality Modality Breast Bilateral Mammography 04/14/2025 7:12 AM CDT Impressions 04/14/2025 8:25 AM CDT IMPRESSION: No mammographic evidence of malignancy is identified in either breast. Routine screening mammography is recommended in one year. OVERALL FINAL ASSESSMENT: BI-RADS CATEGORY 2: Benign findings. DICTATION LOCATION: [facility] 04/14/2025 8:25 AM CDT EXAMINATION: MAMMO 3D RADHA SCREEN BILAT W OR WO CAD DATE: 04/14/2025 7:11 AM HISTORY: Routine screening mammography. COMPARISON: 11/23/2023, 11/06/2022, 11/06/2021. TECHNIQUE: Bilateral screening mammogram was performed. Low-dose full-field digital breast tomosynthesis examination was performed with 2D and 3D acquisitions. Examination is read in conjunction with computer aided detection. BREAST COMPOSITION: There are scattered areas of fibroglandular density. FINDINGS: There are stable postoperative changes of bilateral reduction mammoplasty. No new suspicious findings are identified in either breast on mammogram. us Gill Lopez MD MAMMO ORDERABLES Final Resul t from Last 3 Months [facility] Care Teams Head Field Hockey Coach Relationship Specialty Start Date End Date Gill Lopez MD [address] [place] [address] PCP - General Family Practice 11/02/20
--- OUTSIDE RECORDS SUMMARY | 2025-05-16 12:40 | XMS_ITS | Encounter Summary ---
Author Organization [facility] Address [address] [place] [address] Care Team Providers Care News Director Name Role Phone Cali Garcia MD Unavailable Unavailabl e Ravinder Mora MD Unavailable Sulaiman Elliott MD Unavailable Gabriel Coffman MD Unavailable [phone] Gill Lopez MD Primary Care Provider Encounter Details Date Type Department Care Team (Late st Contact Info) Description 04/13/2025 Results Follow-Up [facility] - Internal Medicine [address] [place] [address] Gill Lopez MD [address] [place] [address] Social History Tobacco Use Types Packs/Day Years [...] on file 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 Answer Date of Assessment Author No 01/07/2017 12:55 PM MAYELAT Renu Galloway RN * Is person blind or have serious difficulty seeing? Answer Date of Assessment Author No 01/07/2017 12:55 PM MAYELAT Renu Galloway RN * Does person have serious difficulty walking/climbing stairs? Answer Date of Assessment Author No 01/07/2017 12:55 PM MAYELAT Renu Galloway RN * Does person have difficulty dressing/bathing? Answer Date of Assessment Author No 01/07/2017 12:55 PM MAYELAT Renu Galloway RN * Does person have difficulty doing errands alone? Answer Date of Assessment Author No 01/07/2017 12:55 PM Renu Krishnan RN documented as of this encounter Mental Status * Does person have difficulty concentrating/remembering/making decisions? Answer Entry Date Author No 01/07/2017 12:55 PM Renu Krishnan RN documented in this encounter Plan of Treatment Upcoming Encounters Date Type Department Care Team (Late st Contact Info) Description 11/29/2025 8:15 AM CDT Office Visit [facility] - Internal Medicine [address] [place] [address] Gill Lopez MD [address] [place] [address] 04/13/2026 8:45 AM CDT Office Visit [facility] V[facility] [address] [place] [address] Gabriel Coffman MD [address] [place] [phone] documented as of this encounter Visit Diagnoses Not on filedocumented in this encounter Care Teams News Director Relationship Specialty Start Date End Date Gill Lopez MD [address] [place] [id number] PCP - General Family Medicine 11/16/20 Cali Garcia MD 04/04/10 Ravinder Mora MD [address] [place] [address] [address] [place] [phone] 04/04/10 Sulaiman Elliott MD [address] [place] [address] [address] [place] [address] Orthopedic Surgery 06/21/15 Gabriel Coffman MD [address] [address] Cardiology 08/19/16 documented as of this encounter
--- OUTSIDE RECORDS SUMMARY | 2025-05-16 12:40 | XMS_ITS | Encounter Summary ---
Author Organization [facility] Address [address] [place] [address] Care Team Providers Care Prison Warden Name Role Phone Nolan Villa MD Primary Care Provider [phone] Cali Garcia MD Unavailable UnavailRavinder Fenton MD Unavailable [phone] Sulaiman Elliott MD Unavailable Gabriel Coffman MD Unavailable [phone] Gill Lopez MD Primary Care Provider [phone] Gill Lopez MD Unavailable [phone] Encounter Details Date Type Department Care Team (Late Contact Info) Description 2016 [facility] Outpatient Visit [facility] [address] [place] [address] Document, Scanned Social History Tobacco Use Types Packs/Day Years Used Date Smoking Tobacco: Never Smokeless Tobacco: Never Alcohol Use Standard Drinks/Week Comments No 0 (1 standard drink = 0.6 oz pur e alcohol) Comments No Sex and Gender Information Value Date Recorded Sex Assigned at Not on file 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 Gender Identity Not on file Sexual Orientation Not on file 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 Not on file documented as of this encounter Plan of Treatment Upcoming Encounters Date Type Department Care Team ([facility] Contact Info) Description 11/29/2025 8:15 AM CDT Office Visit [facility] - Internal Medicine [address] [place] [address] Gill Lopez MD [address] [place] [address] 04/13/2026 8:45 AM CDT Office Visit [facility] [address] [place] [address] [address] [place] [address] Gabriel Coffman MD [address] [place] [address] documented as of this encounter Visit Diagnoses Not on filedocumented in this encounter Care Teams Prison Warden Relationship Specialty Start Date End Date Nolan Villa MD PCP - General 10/17/08 11/15/20 Gill Lopez MD [address] [place] [address] PCP - General Family Medicine 11/16/20 Gill Lopez MD [address] [place] [address] PCP - Attributed-[employer] 11/22/21 Cali Garcia MD 04/04/10 Ravinder Mora MD [address] [place] [phone] 04/04/10 Sulaiman Elliott MD [address] [place] [phone] Orthopedic Surgery 06/21/15 Gabriel Coffman MD [address] [place], [place] [address] [address] [place] [address] Cardiology 08/19/16 documented as of this encounter
--- NOTE | 2025-05-16 13:03 | ED_ITS ---
HPI - Extremity Problem General Chief complaint: Extremity Problem,Nontraumatic Stated complaint: RT Arm Pain Time Seen by Provider: 05/16/25 13:00 Source: patient and RN notes reviewed Mode of arrival: ambulatory Limitations: no limitations History of Present Illness HPI Narrative: 59-year-old female presents Express Care complaining of right wrist pain/forearm pain for approximately 2 weeks. Patient denies any falls or injuries. Patient reports the pain has gotten significantly worse over the last 2 days. 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 Patient reports she feels a raking sound to her wrist. Patient denies any numbness or tingling or any other complaints. Related Data Home Medications ?Medication ?Instructions ?Recorded ?Confirmed ?Last Taken ?Type imiquimod 5 % topical cream packet topical 05/16/25 U nknown History metoprolol succinate 50 mg mg PO 05/16/25 Unknown His tory tablet,extended release 24 hr rosuvastatin 20 mg tablet mg 05/16/25 Unknown History sertraline 100 mg tablet mg 05/16/25 Unknown History Allergies Allergy/AdvReac Type Severity Reaction Status Date / Time Penicillins Allergy Intermediate RASH Verified 05/16/25 12:42 apixaban (From Eliquis) AdvReac Intermediate Blister Verified 05/16/25 12:42 Review of Systems Review of Systems: CONSTITUTIONAL: Denies fever, chills, or sweats. EYES: Denies visual changes, redness, or discharge. ENT: Denies rhinorrhea, congestion, sore throat, or otalgia. CARDIOVASCULAR: Denies chest pain, palpitations, or edema. RESPIRATORY: Denies cough or dyspnea. GASTROINTESTINAL: Denies abdominal pain, nausea, vomiting, or diarrhea. GENITOURINARY: Denies dysuria or hematuria. SKIN: Denies rash or itching. MUSCULOSKELETAL: Denies back pain, joint pain, or myalgia. NEUROLOGIC: Denies headache, numbness, or weakness. PSYCHIATRIC: Denies anxiety or depression. All other systems reviewed are negative, except as documented in HPI. PMFSH Comments At the time of my signature, I reviewed and agree with the nursing past medical, surgical, social, and family history. There is no relevant family history pertinent to the patient complaint. Exam Narrative: GENERAL: This is a well-nourished, well-developed adult, in no apparent distress. They are non ill-appearing, nontoxic appearing. HEAD: normocephalic, atraumatic. EYES: Sclera clear/white. Conjunctiva normal. Vision is grossly intact. Extraocular movements intact EARS: External ears normal,Hearing grossly intact. NOSE: External nose normal THROAT: Mucous membranes moist, NECK: Neck supple, CARDIOVASCULAR: Regular rate and rhythm without murmurs, gallops, or rubs. RESPIRATORY: Respiratory rate normal, respiratory effort nonlabored, no respiratory distress SKIN: warm, Dry, intact with no suspicious lesions or rash, good texture and turgor. NEURO: awake, alert, and oriented to person, place and time. There were no obvious focal neurologic abnormalities. EXTREMITIES: Right wrist/forearm: No obvious deformity, bruising, redness, swelling, or injury. There is crepitus present during wrist flexion and extension. There is tenderness to full range of motion the wrist. It is tender to palpate throughout the wrist. Radial pulse 2 +and palpable. Capillary refill less than 2 seconds. Sensation intact. Negative Tinel sign and phalen test. Course Course Emergency Course: Portions of this record may have been created with voice recognition software Level of Care: Express Care Visit Vital Signs Vital signs: Vital Signs Temperature 97.2 F L 05/16/25 12:38 Pulse Rate 85 05/16/25 12:38 Respiratory Rate 18 05/16/25 12:38 Blood Pressure 129/70 05/16/25 12:38 Pulse Oximetry 96 05/16/25 12:38 Oxygen Delivery Room Air 05/16/25 12:38 Temperature 97.2 F L 05/16/25 12:38 Pulse Rate 85 05/16/25 12:38 Respiratory Rate 18 05/16/25 12:38 Blood Pressure 129/70 05/16/25 12:38 Pulse Oximetry 96 05/16/25 12:38 Oxygen Delivery Room Air 05/16/25 12:38 Reviewed MDM - Extremity (Nontraumatic) MDM Narrative Medical decision making narrative: Crepitus noted on exam to right wrist will obtain imaging. X-ray right wrist shows no evidence of fractures or acute findings. Joint space narrowing noted to the 1st metacarpal am metacarpophalangeal joints which could indicate arthritic changes. Recommend conservative therapy. Patient states she areas an Gregorio wrap or a wrist splint that she can wear. Advised to follow-up with ortho for further evaluation especially if pain persist. Discussed physical exam findings. Advised supportive measures and signs/symptoms to go to the ER. Pt is appropriate for outpt treatment and f/u. Differential Diagnosis Differential diagnosis: Likely other (Arthritis, fracture, carpal tunnel synd trevor, wrist sprain) Imaging Data Radiologist's impression: ITS Impressions Wrist X-Ray 05/16/25 13:11 IMPRESSION: 1. No fracture. No dislocation 2. Moderate joint space narrowing in the first carpometacarpal joint and first metacarpophalangeal joint. 3. Soft tissue swelling about the right wrist. If symptoms persist or worsen, consider a short-term follow-up study or additional imaging for further assessment. Critical Care Time Critical Care Time Critical Care Time: No Discharge Plan Discharge Clinical Impression: Acute pain of right wrist Patient Disposition: Home Condition: Stable Instructions: Wrist Injury (ED) Additional Instructions: The x-ray of your right wrist is negative for any fractures or acute findings, there is noted arthritis changes to your wrist and hand. Rest the affected wrist. Apply ice 15-20 minute intervals several times a day Keep it wrapped with GRGEORIO or use a wrist cock-up splint. If allowed to by your doctor; You may take ibuprofen 600 mg to 800 mg every 6-8 hours. Do not exceed more than 800 mg of ibuprofen per dose. Do not exceed more than 3200 mg ibuprofen in a day. You may take up to 1000 mg Tylenol every 6-8 hours. Do not exceed 1000 mg per dose, do exceed more than 4000 mg of Tylenol in a day. Follow up with your primary care provider or orthopedist in 1 week. Patient Language: Faroese Prescriptions: No Action metoprolol succinate 50 mg tablet extended release 24 hr PO sertraline 100 mg tablet imiquimod 5 % cream in packet TOPICAL rosuvastatin 20 mg tablet Follow-up/Referrals: Jessica,Gill Priest [Other] Dallas Mayfield MD [Physician, Orthopedics] Time of Disposition: 13:35
== END 2025-05-16 13:37 | disposition home or self-care (01) ==
DX: M25.531 Pain in right wrist (principal); E78.00 Pure hypercholesterolemia, unspecified; I73.9 Peripheral vascular disease, unspecified; K21.9 Gastro-esophageal reflux disease without esophagitis; M19.90 Unspecified osteoarthritis, unspecified site; F41.9 Anxiety disorder, unspecified; F32.A Depression, unspecified; Z96.653 Presence of artificial knee joint, bilateral; Z96.641 Presence of right artificial hip joint
CPT/HCPCS: 73110; 99203; G0463